=== PATIENT | male | born 1980 | race African-American/Black ===

== ENCOUNTER 2021-09-03 23:25 | Emergency (ER) | payer BC, SELFPAY ==
[2021-09-03 23:30] VITALS: BP 153/99; PULSE 98; RESP 18; TEMP 36.8; O2SAT 97
--- NOTE | 2021-09-03 23:59 | ED.ALLEREA ---
HPI - Allergic Reaction General Chief complaint: Allergic Reaction Stated complaint: bee sting, hand swelling Time Seen by Provider: 09/03/21 23:49 History of Present Illness HPI narrative: Patient is a 41-year-old male here for evaluation of diffuse right hand swelling and redness for the past day. Patient states that he was stung by a bee 1 day ago, and ever since he has noted his hand has become progressively swollen and itchy and tight . He has attempted Benadryl and zyrtec without much relief of his symptoms, last taken around noon. He does note that he has been stung by a bee in the past, had a local reaction, but never with hand swelling. Denies difficulty breathing, throat tightness, chest pain, painful rash, fevers or blisters, involvement of mucosa. Related Data Allergies Allergy/AdvReac Type Severity Reaction Status Date / Time shellfish derived Allergy Intermediate Nausea and Verified 02/09/15 14:18 Vomiting Review of Systems Review of Systems: Gen: Denies fevers or chills Eyes: Denies eye pain or visual change ENT: Denies congestion Respiratory: Denies shortness of breath or cough CV: Denies chest pain or palpitations GI: Denies abdominal pain nausea, emesis or diarrhea : denies burning, urgency, frequency or hematuria Musculoskeletal: Denies back pain or muscle pain Neuro: Denies numbness, tingling, weakness or focal weakness Skin: Reports right hand swelling and redness Except as documented, all other systems reviewed and negative Exam Narrative: APPEARANCE: No acute distress, nontoxic, resting in bed HEENT: Normocephalic, atraumatic, OMM, TMs clear bilaterally EYES: PERRL, EOMI NECK: Supple, nontender, full range of motion without pain, no meningismus RESPIRATORY: No respiratory distress, clear to auscultation bilaterally with no rhonchi wheezing or rales CARDIOVASCULAR: RRR, no murmur ABDOMINAL: Soft, nontender, nondistended MUSCULOSKELETAL: Right hand is swollen over dorsal aspect with mild redness. No obvious induration or fluctuance, no stinger visualized in hand. Nikolsky sign negative. No tenderness to palpation over rash. NEURO: A and O ?3, following commands, speech normal, cranial nerves II through XII grossly intact,muscle strength 5 out of 5 bilateral upper and lower extremities SKIN: Right hand redness PSYCHIATRIC: Normal affect/mood Course Vital Signs Vital signs: Vital Signs Temperature 98.2 F 09/03/21 23:30 Pulse Rate 98 09/03/21 23:30 Respiratory Rate 18 09/03/21 23:30 Blood Pressure 153/99 H 09/03/21 23:30 Pulse Oximetry 97 09/03/21 23:30 Oxygen Delivery Room Air 09/03/21 23:30 Temperature 98.2 F 09/03/21 23:30 Pulse Rate 98 09/03/21 23:30 Respiratory Rate 18 09/03/21 23:30 Blood Pressure 153/99 H 09/03/21 23:30 Pulse Oximetry 97 09/03/21 23:30 Oxygen Delivery Room Air 09/03/21 23:30 MDM - Allergic Reaction MDM Narrative Medical decision making narrative: 41-year-old male here for evaluation of hand swelling and itchiness for the past day after he was stung by a bee. No respiratory symptoms. His hand is diffusely swollen and mildly erythematous, no tenderness to palpation or swelling along flexor tendons to suggest flexor tenosynovitis. No systemic symptoms, Nikolsky sign negative, so doubt SJS or TENS. He was treated with pepcid, prednisone, benadryl in the ED with improvement of symptoms. Likely allergic reaction, possible cellulitis. Will send prescription for Keflex and prednisone for patient to take at home. Discussed return precautions patient voiced understanding. Discharge Plan Discharge Clinical Impression: Bee sting Patient Disposition: Home, Self-Care Condition: Stable Instructions: Antibiotic Form, Insect Bite or Sting (ED) Additional Instructions: Your hand is likely swollen due to the bee sting. Return to the ED if your pain is unmanageable, you develop throat tightness or swelling, you feel short of breath
[2021-09-04] MEDS: predniSONE 20 MG TABLET 40 MG PO (00:05)
[2021-09-04] MEDS: FAMOTIDINE 20 MG TABLET PO (00:06)
[2021-09-04] MEDS: diphenhydrAMINE HCl CAP 25 MG CAPSULE PO (01:53)
== END 2021-09-04 02:40 | disposition home or self-care (01) ==
PROVIDERS: Emergency Provider Emergency Medicine; PCP Internal Medicine
DX: T63.441A Toxic effect of venom of bees, accidental (unintentional), initial encounter (principal)
CPT/HCPCS: 99283; A9270; J7512